=== PATIENT | male | born 1985 | race Caucasian/White ===

== ENCOUNTER 2017-09-17 06:52 | Emergency (ER) | payer SELFPAY ==
[~2017-09-17] VITALS: Ht 190.5 cm; Wt 125.6 kg
[2017-09-17 07:30] LABS: HEMATOCRIT 47.6 % (38.0-50.0); MCH 29.1 PG (29.0-34.0); MCHC 34.5 G/DL (30.0-36.0); MCV 84.4 FL (86-99); MEAN PLAT.VOLUME 10.1 uM^3 (9.0-12.4); PLATELET COUNT 185 K/uL (156-360); RBC DIS.WIDTH-CV 12.5 % (11.8-14.6); RBC DIS.WIDTH-SD 38.4 % (39-53); RED BLOOD COUNT 5.64 M/uL (4.00-5.50); WHITE BLOOD COUNT 4.5 K/uL (4.1-10.2)
[2017-09-17 08:43] LABS: CHLORIDE 99 mEq/L (99-109); POTASSIUM 3.5 mEq/L (3.7-5.4); SODIUM 137 mEq/L (136-147)
[2017-09-17 08:45] LABS: GLUCOSE 102 mg/dL (70-99)
[2017-09-17 08:47] LABS: ANION GAP 14 MEQ/L (2-14); TOTAL BILIRUBIN 0.8 mg/dL (0.0-1.0)
[2017-09-17 08:49] LABS: ALKALINE PHOSPHATASE 91 IU/L (3-129); GFR ESTIMATE (CALCULATED) > 59 mL/min/ (58.99-99999)
[2017-09-17 08:50] LABS: UREA NITROGEN (BUN) 14 mg/dL (9-23)
[2017-09-17 10:52] LABS: ADD MIUA? YES; BILIRUBIN NEGATIVE; BLOOD NEGATIVE; COLOR AMBER ((YELLOW)); GLUCOSE (STRIP) NEGATIVE; KETONES 5; LEUKOCYTES NEGATIVE; NITRITE NEGATIVE; PROTEIN (STRIP) 30; SPECIFIC GRAVITY 1.028 (1.000-1.030)
[2017-09-17 10:58] LABS: BACTERIA RARE /HPF; CALCIUM OXALATE CRYSTALS 1+ /HPF; EPITHELIAL CELLS NONE SEEN /HPF; MUCUS 4+ /LPF; RED BLOOD CELLS 0-5 /HPF (0-5); UCUL ADDED? NO; WHITE BLOOD CELLS 0-5 /HPF (0-5)
[2017-09-17] MEDS ORDERED: BENTYL20 MG PO (13:00)
[2017-09-17] MEDS ORDERED: ZOFRAN4 MG PO (13:00)
[2017-09-17] MEDS ORDERED: IMODIUM A-D2 M2 PO (13:00)
[2017-09-17 13:10] VITALS: BP 137/87
== END 2017-09-17 13:38 | disposition home or self-care (01) ==
LOC: EME 06:52
PROVIDERS: Emergency Medicine
DX: R11.2 Nausea with vomiting, unspecified (principal); R19.7 Diarrhea, unspecified; Z90.49 Acquired absence of other specified parts of digestive tract
CPT/HCPCS: 80048 91; 80053; 81003; 85027; 87502; 99281; 99285; J2405; J7030